=== PATIENT | female | born 1955 | race Caucasian/White ===

== ENCOUNTER 2017-05-31 11:09 | Day surgery (SDC) | payer OTHER, MEDICARE ==
[~2017-05-31] VITALS: Ht 160 cm; Wt 63.2 kg
[~2017-05-31 11:09] MED LIST: AMLODIPINE BESYL5 MG PO; AMOXICILLIN500 M1 PO; AMOXICILLIN500 M2 PO; ARANESP25 MCG/1 M IV; AURYXIA PO; BYSTOLIC20 M1 PO; CALCIUM 600 MG1 EACH PO; CALCIUM WITH VI1 TAB; CELEXA40 M2 PO; CELEXA40 MG PO; CLONIDINE HCL0.1 M2 PO; COLACE100 M1 PO; COZAAR25 M1 PO; COZAAR25 MG PO; COZAAR50 M1 PO; CYANOCOBAL1000 MCG/3 IJ; DEPLIN-ALGAL O1 EAC1 PO; EFUDEX 5% CREAM25 GM TOP; FERRLECIT62.5 MG/5 IV; FORTEO2.4 ML SC; ICAPS TABLET1 TAB.S; IMURAN50 M1 PO; IMURAN50 MG; IMURAN50 MG PO; KAYEXALATE453.6 GM PO; LAMICTAL100 MG; LASIX20 MG; LASIX40 M1 PO; LISINOPRIL10 MG; LISINOPRIL10 MG PO; LISINOPRIL40 M1 PO; LUVOX CR100 MG; METOPROLOL SUCC50 M1 PO; NEURONTIN100 M1 PO; NORCO 5-325 TA1 EACH PO; PERCOCET 5/3251 TAB PO; POTASSIUM CHLO10 MEQ; PREDNISONE5 M1 PO; PREDNISONE5 MG; PREDNISONE5 MG PO; PRENATAL PLUS T1 TA PO; PRENATAL TABLE1 EAC3 PO; PRILOSEC20 M1 PO; PRILOSEC20 MG PO; PROCRIT20000 U/ML SC; PROCRIT20000 UNIT IJ; REMERON15 M1 PO; RENVELA800 M1 PO; SENSIPAR30 M1 PO; SODIUM BICARBO650 M1 PO; TYLENOL EXTRA500 M1 PO; TYLENOL325 M1 PO; TYLENOL325 M2 PO; VITAMIN B-1000 MCG/ IM; WELLBUTRIN XL150 M1 PO; WELLBUTRIN XL300 M1 PO; WELLBUTRIN XL300 M3 PO; WELLBUTRIN XL300 MG; XANAX0.5 M1 PO
[2017-05-31 11:41] LABS: BASO % 0.2 % (0-2); EOS % 3.7 % (0-7); EOSINOPHIL ABSOLUTE COUNT 0.2 tho/cmm (0.0-0.7); HCT-HEMATOCRIT 31.6 % (34.0-49.0); HGB-HEMOGLOBIN 10.7 gm/dl (12.0-15.5); LYMPH ABSOLUTE COUNT 1.6 tho/cmm (0.8-4.5); MCH (MEAN CORPUSCULAR HGB) 32.7 pg (28.0-32.0); MCHC MEAN CORPUSCULAR HGB CONC 33.9 % (32.0-36.0); MCV (MEAN CELL VOLUME) 96.6 fl (82.0-96.0); MEAN PLATELET VOLUME 9.4 cmc (9.4-12.4); MONO % 6.9 % (0-12); MONOCYTE ABSOLUTE COUNT 0.4 tho/cmm (0.0-1.2); NEUTROPHIL ABSOLUTE COUNT 3.5 tho/cmm (1.6-8.0); NEUTROPHIL-AUTOMATED 3.5 tho/cmm (1.6-8.0); NEUTROPHILS % 61.2 % (40-80); PLATELET COUNT 157 tho/cmm (150-450); RED BLOOD COUNT 3.27 mil/cmm (4.00-5.20); WHITE BLOOD COUNT 5.7 tho/cmm (4.0-10.0)
[2017-05-31 11:57] LABS: ANION GAP 20 mmol/L (0-20); BLOOD UREA NITROGEN 76 mg/dl (6-24); CALCIUM 8.6 mg/dl (8.5-10.5); CARBON DIOXIDE-VENOUS 22 mmol/L (22-32); CHLORIDE 104 mmol/l (96-110); CREATININE 9.52 mg/dl (0.50-1.10); GLUCOSE 84 mg/dL (70-110); POTASSIUM 5.4 mmol/L (3.7-5.1); SODIUM 141 mmol/L (135-145); eGFR VALUE FOR BLACK 5 mL/Min
== END 2017-05-31 15:10 ==
LOC: SHSB 11:09 → RADSP 11:09
PROVIDERS: Anesthesiology
PROC: B51WYZZ Fluoroscopy of Dialysis Shunt/Fistula using Other Contrast (ICD-10-PCS; principal; 2017-05-31)
PROC: 057F3ZZ Dilation of Left Cephalic Vein, Percutaneous Approach (ICD-10-PCS; 2017-05-31)
PROC: 05763ZZ Dilation of Left Subclavian Vein, Percutaneous Approach (ICD-10-PCS; 2017-05-31)
DX: T82.858A Stenosis of other vascular prosthetic devices, implants and grafts, initial encounter (principal); I87.1 Compression of vein; F41.9 Anxiety disorder, unspecified; F32.9 Major depressive disorder, single episode, unspecified; R55 Syncope and collapse; I27.2 Other secondary pulmonary hypertension; K21.9 Gastro-esophageal reflux disease without esophagitis; I12.0 Hypertensive chronic kidney disease with stage 5 chronic kidney disease or end stage renal disease; N18.6 End stage renal disease; Z79.899 Other long term (current) drug therapy; Z88.2 Allergy status to sulfonamides; Z88.8 Allergy status to other drugs, medicaments and biological substances; Z91.048 Other nonmedicinal substance allergy status; Z99.2 Dependence on renal dialysis
CPT/HCPCS: C1725; C1769; J7030; Q9967